=== PATIENT | female | born 1940 | race Caucasian/White ===

== ENCOUNTER 2016-07-04 03:11 | Inpatient (IN) ==
--- NOTE | 2016-06-20 10:12 | EKG Report ---
Test Performed on : 06/20/2016 09:23:57 AM Test Reason : pat Blood Pressure : / mmHG Vent. Rate : 070 BPM Atrial Rate : 070 BPM P-R Int : 174 ms QRS Dur : 080 ms QT Int : 378 ms P-R-T Axes : 057 047 075 degrees QTc Int : 408 ms Normal sinus rhythm. Normal ECG When compared with ECG of 22-MAY-2011 17:36, Nonspecific T wave abnormality no longer evident in Lateral leads Confirmed by Shayna RICHARDSON, Tomi Hsieh ([id number]) on 06/20/2016 6:41:51 PM
[2016-06-20 11:35] LABS: MANUAL DIFF NEEDED? NO; URINE MICRO REVIEW NEEDED? NO; URINE SOURCE CLEAN CATCH
[2016-06-20 11:38] LABS: BASO% 0.7 % (0.0-0.8); EOS# 0.22 X1000 (0.0-0.7); EOS% 2.2 % (0.0-10.0); HEMATOCRIT 39.5 % (37.0-47.0); IMM GRAN# 0.02 X1000 (0.0-0.04); IMM GRAN% 0.2 % (0.0-0.5); LYMPH# 4.03 X1000 (1.2-3.4); LYMPH% 39.5 % (20.5-51.1); MCH 30.4 PG (27-31); MCHC 32.9 g/dL (33-37); MCV 92.5 FL (81-99); MONO# 0.97 X1000 (0.11-0.59); MONO% 9.5 % (1.7-9.3); MPV 10.8 FL (7.4-10.4); NEUT% 47.9 % (42.2-75.2); PLT 300 X1000 (130-400); RBC 4.27 XMIL (4.2-5.4)
[2016-06-20 11:41] LABS: BILIRUBIN URINE NEGATIVE (NEGATIVE); BLOOD URINE SMALL (NEGATIVE); COLOR YELLOW; GLUCOSE URINE NEGATIVE (NEGATIVE); LEUKOCYTES URINE NEGATIVE (NEGATIVE); NITRITE URINE NEGATIVE (NEGATIVE); PROTEIN URINE NEGATIVE (NEGATIVE); SP GRAVITY URINE 1.022; TURBIDITY URINE CLEAR (CLEAR); UROBILINOGEN URINE NORMAL (NORMAL)
[2016-06-20 11:43] LABS: UR EPITHELIAL CELLS <10 /HPF (<10); URINE BACTERIA NEGATIVE /HPF; URINE RBC <10 /HPF (<10); URINE WBC <10 /HPF (<10)
[2016-06-20 11:46] LABS: PROTIME 10.5 Seconds (9.2-11.7)
[2016-06-20 12:09] LABS: CALCIUM 10.1 mg/dL (8.8-10.2); POTASSIUM 4.8 mmol/L (3.5-5.1)
[2016-07-04] MEDS ORDERED: COLACE ONE (05:28)
[2016-07-04] MEDS ORDERED: LR 1,000 ML ONE ×2 (05:29→09:51)
[2016-07-04] MEDS ORDERED: REGLAN ONE (05:29)
[2016-07-04] MEDS ORDERED: PEPCID ONE (05:29)
[2016-07-04] MEDS ORDERED: CELEBREX ONE (05:29)
[2016-07-04] MEDS ORDERED: LYRICA ONE (05:29)
[2016-07-04] MEDS ORDERED: KEFZOL 2 GM/D5W 2 GM/50 ML IVPB ONE (05:30)
[2016-07-04] MEDS ORDERED: DIPRIVAN 1% 500 MG/50 ML BOTTLE ONE (06:22)
[2016-07-04] MEDS ORDERED: MARCAINE 0.25% PF/EPI 1:200,000 ONE (06:40)
[2016-07-04] MEDS ORDERED: VANCOMYCIN ONE (06:40)
[2016-07-04] MEDS ORDERED: CYKLOKAPRON 1,000 MG/NS 1,000 MG/100 ML IVPB ONE ×2 (06:40→06:41)
[2016-07-04] MEDS ORDERED: SODIUM CHLORIDE 0.9% ONE (06:40)
[2016-07-04] MEDS ORDERED: TORADOL ONE (06:40)
[2016-07-04] MEDS ORDERED: CLAVE SECONDARY SET 11953 ONE (06:41)
[2016-07-04] MEDS ORDERED: NEOSPORIN G.U. IRRIGANT ONE (06:41)
[2016-07-04] MEDS ORDERED: EXPAREL 1.3% ONE (06:41)
[2016-07-04 07:56] LABS: URINE MICRO REVIEW NEEDED? NO; URINE SOURCE CATH
[2016-07-04 07:58] LABS: BILIRUBIN URINE NEGATIVE (NEGATIVE); BLOOD URINE SMALL (NEGATIVE); COLOR STRAW; GLUCOSE URINE NEGATIVE (NEGATIVE); LEUKOCYTES URINE NEGATIVE (NEGATIVE); NITRITE URINE NEGATIVE (NEGATIVE); PROTEIN URINE NEGATIVE (NEGATIVE); SP GRAVITY URINE 1.009; TURBIDITY URINE CLEAR (CLEAR); UROBILINOGEN URINE NORMAL (NORMAL)
[2016-07-04 08:00] LABS: UR EPITHELIAL CELLS <10 /HPF (<10); URINE BACTERIA NEGATIVE /HPF; URINE RBC <10 /HPF (<10); URINE WBC <10 /HPF (<10)
[2016-07-04] MEDS ORDERED: VERSED ONE (09:01)
[2016-07-04] MEDS ORDERED: DIPRIVAN 1% ONE (09:01)
[2016-07-04] MEDS ORDERED: FENTANYL ONE (09:01)
--- NOTE | 2016-07-04 09:22 | OPERATIVE NOTE ---
PROCEDURE DATE: 07/04/2016 DATE OF OPERATION: 07/04/2016. PREOPERATIVE DIAGNOSIS: Degenerative arthritis, left knee. POSTOPERATIVE DIAGNOSIS: Degenerative arthritis, left knee. PROCEDURE: Left total knee arthroplasty, DePuy Attune size 6, posterior stabilized femur, size 6 tibial tray, 10 mL rotating flap platform tibial insert, and a 35 mm medialized anatomic patella. SURGEON: Tom Whitfield MD. TIMBER POISONER: Tushar Aguirre. SECOND BOILER WASHER: Agustina Lyman. ANESTHESIA: Spinal. IV FLUIDS: 1200 mL lactated Ringer's. ESTIMATED BLOOD LOSS: 30 mL. TOURNIQUET TIME: 75 minutes at 350 mmHg. COMPLICATIONS: None. INDICATION: The patient is a 75-year-old female with chronic history of pain and discomfort in her left knee. X-rays of the underlying degenerative arthritis. Recommendation to proceed with left total knee arthroplasty was offered. Risks of surgery were explained, including the risks of anesthesia, , bleeding, infection, failure to relieve pain, postop stiffness, nerve injury, blood clots, and other imponderables. All questions answered and patient and family wished to proceed with surgery. DETAILS OF OPERATION: The patient was taken to the operating room and placed supine on the operating table. Once adequate anesthesia was obtained, patient's left lower extremity was subsequently prepped and draped in the usual sterile fashion. An Esmarch was used to exsanguinate the left lower extremity and the tourniquet was inflated to 350 mmHg. A standard anterior incision was made with skin knife. Medial and lateral skin envelopes were developed. Standard medial parapatellar arthrotomy was then performed. Patella fat pad was excised. Superior retractors then placed. Approximately 1 cm anterior to the PCL insertion, starting reamer was passed. Intramedullary guide was then placed with the distal femoral cutting block pinned in position. Distal femoral cut was then performed. A sizing block was placed and measured size 6. A size 6 cutting block was pinned in position. Anterior, posterior, and chamfer cuts were then made. Attention turned to the proximal tibia where further resection of the ACL and PCL was performed. Using the extramedullary guide, the proximal tibia cutting block was pinned in position. I had good alignment confirmed with the alignment real. The proximal had good alignment confirmed with the alignment real. Proximal tibia was then resected. Medial and lateral meniscus was excised. A curved osteotome was used to remove the posterior osteophytes off the distal femur. A spacer block was placed and had good soft tissue balance with flexion and extension. The size 6 tibial tray appeared to be the correct size. This was pinned in position. This was followed by central reamer and a fin punch. A box cutting guide was then placed over the distal femur. A box cut was performed. A trial femoral component was then placed in position. Two lug holes were drilled. A trial tibial insert was then placed and good soft tissue balance in both flexion and extension. The patella was everted and resected in standard fashion. A 35 appeared to be the correct size. Corresponding holes were drilled. Trial limb patella component was then placed and had good patellofemoral tracking. The trial components were then removed. Copious irrigation was then performed with antibiotic pulsatile lavage while vancomycin was mixed with cement on the back table. Sequential cementing was then performed, first with the tibial tray and excess cement was removed with a [place] followed by the femoral component and excess cement was removed with a [place] followed by trial tibial insert in full extension and axial loading was maintained while the cement cured. Patella cemented in standard fashion. Patella clamp was placed. Exparel was placed in deep soft tissue, as well as subcutaneous tissue, while the cement was curing. After cement cured, the peripheral cement was removed with a small osteotome. A 10 mm rotating platform tibial insert appeared to be the correct size. The trial insert was removed. Exparel was placed in the deep posterior capsule. The wound was copiously irrigated once again with antibiotic pulsatile lavage. This was followed by the 10 mm rotating platform tibial insert. The patient had good range of motion, good soft tissue balance and good patellofemoral tracking. A 1/8 Hemovac drain was placed and was not sewn in. Copious irrigation then performed once again with antibiotic pulsatile lavage. Number 1 Vicryl was used to repair the arthrotomy, followed by 2-0 Vicryl to repair the subcutaneous tissue and skin isra. Adaptic, sterile 4 x 4, Webril, cryo unit, Luis wrap applied to the left lower extremity. The patient tolerated the procedure well with no complications. Transferred to the recovery room in stable condition. cc: Tom Whitfield MD
[2016-07-04] MEDS ORDERED: NEO-SYNEPHRINE ONE (09:50)
[2016-07-04] MEDS ORDERED: EPHEDRINE ONE (09:50)
[2016-07-04] MEDS ORDERED: XYLOCAINE-MPF 2% ONE (09:50)
[2016-07-04] MEDS ORDERED: SODIUM CHLORIDE 0.9% 10 ML ONE (09:50)
[2016-07-04] MEDS ORDERED: ZOFRAN ONE (09:50)
[2016-07-04] MEDS ORDERED: OFIRMEV 1000 MG/ISOTONIC SOLN 1,000 MG/100 ML BOTTLE ONE (09:51)
[2016-07-04] MEDS ORDERED: DECADRON ONE (09:51)
--- NOTE | 2016-07-04 10:36 | Diag Imaging Result Document ---
PROCEDURE NAME: KNEE 1-2 VIEWS-LEFT - 07/04/2016 LEFT KNEE, 2 VIEWS: COMPARISON: 11/02/2014. FINDINGS: There has been total knee arthroplasty with patellar resurfacing. Alignment is anatomic. No hardware fracture or loosening. IMPRESSION: No complication.
[2016-07-04] MEDS ORDERED: MORPHINE IV PRN (10:43)
[2016-07-04] MEDS ORDERED: MILK OF MAGNESIA PO PRN (10:45)
[2016-07-04] MEDS ORDERED: ZOFRAN PO PRN (10:45)
--- NOTE | 2016-07-04 12:01 | HISTORY AND PHYSICAL ---
CHIEF COMPLAINT: Left knee pain. HISTORY OF PRESENT ILLNESS: Ms. Rodriguez is a 76-year-old white female who has experienced progressive left knee pain for some time. Her pain is worse with weightbearing activity and relieved somewhat with rest. Radiographic evaluation of the knee reveals findings consistent with advanced degenerative joint disease. Despite conservative therapy, she still suffers from a reduction in her ability to conduct her normal daily activities. She will be admitted at this time for a left total knee arthroplasty. PRIMARY CARE PROVIDER: Dr. Malachi Acosta. ALLERGIES: No known drug allergies. PAST MEDICAL HISTORY: 1. Osteoarthritis. 2. Hypertension. 3. Gastroesophageal reflux disease. 4. Hypothyroidism. 5. Depression. 6. Dyslipidemia. 7. Restless leg syndrome. PAST SURGICAL HISTORY: 1. Bilateral cataract surgery. 2. Hysterectomy. 3. Percutaneous transluminal coronary angioplasty. SOCIAL HISTORY: The patient is a nonsmoker. CURRENT MEDICATIONS: 1. Lipitor 40 mg daily. 2. Spironolactone 25 mg daily. 3. Potassium 20 mEq by mouth daily. 4. Requip 1 mg daily. 5. Lexapro 10 mg daily. 6. Famotidine 20 mg daily. 7. Plavix 75 mg daily. This was previously discontinued. 8. Diltiazem 240 mg by mouth daily. 9. Levothyroxine 100 mcg daily. 10. [place] 7.5, one tablet by mouth twice daily. 11. Benazepril/hydrochlorothiazide combination 20-12.5 mg 1 tablet by mouth twice daily. REVIEW OF SYSTEMS: HEENT: No known history of stroke or cerebrovascular disease. She denies recent interval health change. CARDIAC: She has a history of coronary artery disease and hypertension. She denies chest pain, pressure, or other anginal equivalents at this time. PULMONARY: She has a history of COPD. GASTROINTESTINAL: She is treated for gastroesophageal reflux disease. GENITOURINARY: She denies kidney, bladder infection, or dysfunction. NEUROLOGIC: She takes medicine for depression. She has a history of restless leg syndrome. MUSCULOSKELETAL: She is here today for left knee osteoarthritis. OTHER: She is treated for hypothyroidism and dyslipidemia. PHYSICAL EXAMINATION: GENERAL: The patient is resting comfortably in bed. She is articulate and able to answer all questions fully. HEENT: Head is normocephalic and atraumatic. Pupils are equal, round, react to light. Nares are patent. Throat without exudate. NECK: Supple. HEART: Regular rate and rhythm. No murmurs, gallops, or rubs. LUNGS: Clear to auscultation bilaterally. ABDOMEN: Round. Bowel sounds are present. It is nontender. GENITOURINARY: Not examined. NEUROLOGICAL: Gross motor function is intact with good per section of soft touch. MUSCULOSKELETAL: Left knee deformity, edema, or ecchymosis is noted. She has a good peripheral pulse. IMPRESSION: Degenerative joint disease of the left knee. PLAN: Left total knee arthroplasty. The risks and benefits of surgery were explained to the patient including the risk of anesthesia, , bleeding, infection, damage to tendons, ligaments, nerves, blood vessels, the possibility of bleeding and other imponderables were discussed, and she wishes to proceed with operative management at this time. Dictated by RAFITA Walters for Tom Whitfield MD cc: RAFITA Walters MD
[2016-07-04] MEDS: NS 1,000 ML IV SCH ×2 (12:26→22:11)
[2016-07-04] MEDS: LEXAPRO PO SCH (12:26)
[2016-07-04] MEDS: KLOR-CON PO SCH (12:26)
[2016-07-04] MEDS: ALDACTONE PO SCH (12:27)
[2016-07-04] MEDS: LOTENSIN HCT PO SCH ×2 (12:27→22:12)
[2016-07-04] MEDS: PEPCID PO SCH (12:28)
[2016-07-04] MEDS: LIPITOR PO SCH (12:37)
[2016-07-04] MEDS: CARDIZEM CD PO SCH (12:37)
[2016-07-04] MEDS: REQUIP PO SCH (12:38)
[2016-07-04] MEDS: TYLENOL PO SCH ×3 (12:38→22:12)
[2016-07-04] MEDS: OXY IR PO PRN ×2 (15:16→22:12)
[2016-07-04] MEDS: KEFZOL 1 GM/D5W 1 GM/50 ML IVPB IV SCH ×2 (15:16→22:11)
[2016-07-04] MEDS: PERIDEX MT SCH (22:11)
[2016-07-04] MEDS: COLACE PO SCH (22:12)
[2016-07-05] MEDS: OXY IR PO PRN ×2 (03:39→09:00)
[2016-07-05] MEDS: NS 1,000 ML IV SCH ×2 (05:04→12:57)
[2016-07-05] MEDS: TYLENOL PO SCH ×2 (05:21→11:36)
[2016-07-05] MEDS ORDERED: XARELTO PO SCH (06:00)
[2016-07-05 06:14] LABS: HEMATOCRIT 30.1 % (37.0-47.0); HEMOGLOBIN 9.4 g/dL (12.0-16.0)
[2016-07-05 06:34] LABS: CALCIUM 8.4 mg/dL (8.8-10.2); POTASSIUM 4.4 mmol/L (3.5-5.1)
[2016-07-05] MEDS ORDERED: SYNTHROID PO SCH (07:00)
--- NOTE | 2016-07-05 07:30 | PROGRESS NOTE ---
DATE: 07/05/2016 SUBJECTIVE: The patient is a 76-year-old female who is 1 day status post left total knee arthroplasty. She is currently resting comfortably. She has no complaints. She did mobilize with physical therapy yesterday afternoon. PHYSICAL EXAMINATION: The left lower extremity dressing is intact. Her calf is soft. She is neurovascularly distally. She has active dorsiflexion and plantar flexion. Her hemoglobin is 9.5, hematocrit is 30.1. IMPRESSION: Postop day #1 status post left total knee arthroplasty. PLAN: At this point, I discussed treatment options with the patient. At this time, we will change her dressing and Hep-Lock her IV and discontinue her Elizalde. We will plan on discharging home if she is mobilizing well. We will consult [facility] to arrange home physical therapy. cc: Tom Whitfield MD
[2016-07-05] MEDS: CARDIZEM CD PO SCH (08:51)
[2016-07-05] MEDS: LOTENSIN HCT PO SCH (08:51)
[2016-07-05] MEDS: KLOR-CON PO SCH (08:52)
[2016-07-05] MEDS: LEXAPRO PO SCH (08:52)
[2016-07-05] MEDS: REQUIP PO SCH (08:52)
[2016-07-05] MEDS: ALDACTONE PO SCH (08:52)
[2016-07-05] MEDS: COLACE PO SCH (08:52)
[2016-07-05] MEDS: LIPITOR PO SCH (08:52)
[2016-07-05] MEDS: PERIDEX MT SCH (08:52)
[2016-07-05] MEDS: PEPCID PO SCH (08:52)
[2016-07-05] MEDS ORDERED: DECADRON IV ONE (09:00)
[2016-07-05 11:43] VITALS: BP 130/79
[2016-07-05] MEDS ORDERED: PHENERGAN PO ONE (12:26)
== END 2016-07-05 13:28 | disposition home health service (06) ==
LOC: SURHOLD 03:11 → 4N 08:08
PROVIDERS: ADMIT Orthopaedic Surgery Adult Reconstructive Orthopaedic Surgery; ATTEND Orthopaedic Surgery Adult Reconstructive Orthopaedic Surgery